=== PATIENT | male | born 1945 | race Caucasian/White ===

== ENCOUNTER 2016-10-13 09:36 | Inpatient (IN) | payer MEDICARE, MEDICAID ==
[~2016-10-13] VITALS: Ht 182.9 cm; Wt 86.8 kg
[2016-10-13] MEDS ORDERED: SODIUM CHLORIDE FLUSH 10ML SYR IVF ONE (10:30)
[2016-10-13 10:42] LABS: HEMATOCRIT 44.3 % (39.2-51.8); HEMOGLOBIN 14.7 g/dL (13.7-18.0); WHITE BLOOD COUNT 6.4 x10^3/uL (3.4-10)
[2016-10-13] MEDS ORDERED: LISI40TA PO (10:48)
[2016-10-13] MEDS ORDERED: LISI-170 PO (10:48)
[2016-10-13] MEDS ORDERED: DOXAZOSIN PO (10:48)
[2016-10-13] MEDS ORDERED: FINA5TAB4 PO (10:48)
[2016-10-13] MEDS ORDERED: ATOR-2 PO (10:48)
[2016-10-13] MEDS ORDERED: CARV6.252 PO (10:48)
[2016-10-13 10:56] LABS: ASPARTATE AMINO TRANSFERASE 15 U/L (15-37); BLOOD UREA NITROGEN 21 mg/dL (7-18)
[2016-10-13 11:02] LABS: IS PT STATUS REG ER OR PRE ER? YES
[2016-10-13] MEDS: PLEASE ENTER ALLERGIES MC SCH ×4 (11:09→13:32)
[2016-10-13] MEDS ORDERED: morphine SULFATE 10 MG/ML, 1ML IVPush PRN (12:30)
[2016-10-13] MEDS ORDERED: NITROGLYCERIN 0.4 MG/SPRAY SL PRN (12:30)
[2016-10-13] MEDS ORDERED: ONDANSETRON ODT 4 MG PO PRN (12:30)
[2016-10-13] MEDS ORDERED: ACETAMINOPHEN 325 MG TABLET PO PRN (12:30)
[2016-10-13] MEDS ORDERED: ONDANSETRON 2MG/ML, 2ML IVPush PRN (12:30)
[2016-10-13] MEDS ORDERED: NITROGLYCERIN 0.4 MG BOTTLE (25 TABS) SL PRN (12:30)
[2016-10-13 12:39] VITALS: BP 156/95
[2016-10-13] MEDS: ENOXAPARIN 40 MG/0.4 ML SQ SCH (13:40)
[2016-10-13] MEDS: CARVEDILOL 6.25 MG TABLET PO SCH (13:40)
[2016-10-13 15:28] LABS: IS PT STATUS REG ER OR PRE ER? NO
[2016-10-13 20:11] VITALS: BP_SYST 117; BP_SYST 131; BP_SYST 132; BP_DIAS 73; BP_DIAS 79; BP_DIAS 87
[2016-10-13] MEDS: ATORVASTATIN 20 MG TABLET PO SCH (20:47)
[2016-10-13 21:37] LABS: IS PT STATUS REG ER OR PRE ER? NO
[2016-10-14 02:41] VITALS: BP 107/70
[2016-10-14 05:38] LABS: HEMATOCRIT 42.5 % (39.2-51.8); HEMOGLOBIN 14.2 g/dL (13.7-18.0); WHITE BLOOD COUNT 6.8 x10^3/uL (3.4-10)
[2016-10-14 05:55] LABS: ASPARTATE AMINO TRANSFERASE 15 U/L (15-37); BLOOD UREA NITROGEN 22 mg/dL (7-18)
[2016-10-14] MEDS ORDERED: REGADENOSON 0.4 MG/5 ML SYRINGE ONE (08:14)
[2016-10-14] MEDS: LISINOPRIL 20 MG TABLET PO SCH ×2 (08:30→22:08)
[2016-10-14] MEDS: DOXAZOSIN 2MG TABLET PO SCH (08:30)
[2016-10-14] MEDS: FINASTERIDE 5 MG TABLET PO SCH (08:30)
[2016-10-14] MEDS: CARVEDILOL 6.25 MG TABLET PO SCH (08:30)
[2016-10-14 08:32] VITALS: BP 125/85
[2016-10-14] MEDS ORDERED: LISINOPRIL 20 MG TABLET PO SCH (09:00)
[2016-10-14 13:36] VITALS: BP 128/75
[2016-10-14] MEDS: ENOXAPARIN 40 MG/0.4 ML SQ SCH (13:37)
[2016-10-14] MEDS ORDERED: OMNIPAQUE 350 MG/ML, 100ML BOTTLE ONE (16:11)
[2016-10-14] MEDS ORDERED: LORazepam 0.5MG TABLET PO PRN (17:00)
[2016-10-14] MEDS ORDERED: CALCIUM CARBONATE 500 MG TAB.CHEW PO PRN (18:30)
[2016-10-14 20:01] VITALS: BP 100/62
[2016-10-14 21:50] VITALS: BP 130/83
[2016-10-14] MEDS: ATORVASTATIN 20 MG TABLET PO SCH (22:07)
[2016-10-15 02:24] VITALS: BP 105/71
[2016-10-15 07:22] VITALS: BP 127/82
[2016-10-15] MEDS: CARVEDILOL 6.25 MG TABLET PO SCH (08:47)
[2016-10-15] MEDS: DOXAZOSIN 2MG TABLET PO SCH (08:48)
[2016-10-15] MEDS: LISINOPRIL 20 MG TABLET PO SCH (08:48)
[2016-10-15] MEDS: FINASTERIDE 5 MG TABLET PO SCH (08:48)
[2016-10-15 08:52] VITALS: BP_SYST 121; BP_SYST 131; BP_SYST 147; BP_DIAS 75; BP_DIAS 82; BP_DIAS 83
[2016-10-15 11:59] VITALS: BP 133/85
[2016-10-15] MEDS ORDERED: ASPI-621 PO (12:13)
[2016-10-15] MEDS: ENOXAPARIN 40 MG/0.4 ML SQ SCH (12:19)
[2016-10-15 15:25] VITALS: BP 129/72
== END 2016-10-15 16:10 | disposition home or self-care (01) | DRG 300 ==
LOC: ED 10:46 → EDIP 11:37 → 5SO 12:21 → DCLOUNGE 10-15 15:55
PROVIDERS: ADMIT Hospitalist; ATTEND Hospitalist
DX: I71.2 Thoracic aortic aneurysm, without rupture (principal); K86.2 Cyst of pancreas; I95.9 Hypotension, unspecified; G90.8 Other disorders of autonomic nervous system; E78.00 Pure hypercholesterolemia, unspecified; K76.89 Other specified diseases of liver; I10 Essential (primary) hypertension; E78.5 Hyperlipidemia, unspecified; M10.9 Gout, unspecified; N40.0 Benign prostatic hyperplasia without lower urinary tract symptoms; Z82.3 Family history of stroke; Z82.49 Family history of ischemic heart disease and other diseases of the circulatory system; Z87.891 Personal history of nicotine dependence; Z79.899 Other long term (current) drug therapy
CPT/HCPCS: 36415; 71010; 71275; 74175; 78452; 80053; 80061; 83605; 83735; 84100; 84439; 84443; 84484; 85025; 93005; 93017; 93306; 99285; J1650; J2785; Q9967; A9502; C9898

== ENCOUNTER 2016-12-09 10:02 | Inpatient (IN) | payer MEDICARE, MEDICAID ==
[~2016-12-09] VITALS: Ht 182.9 cm; Wt 84.4 kg
[~2016-12-09 10:02] MED LIST: ASPI-621 PO; ATOR-2 PO; CARV6.252 PO; DOXAZOSIN PO; FINA5TAB4 PO; LISI-170 PO; LISI40TA PO
[2016-12-09] MEDS ORDERED: ASPI-496 PO (10:13)
[2016-12-09] MEDS ORDERED: DOXA2TAB9 PO (10:13)
[2016-12-09] MEDS ORDERED: OMEP20TA62 PO (10:13)
[2017-01-02 15:11] LABS: HEMATOCRIT 46.8 % (39.2-51.8); HEMOGLOBIN 15.9 g/dL (13.7-18.0); WHITE BLOOD COUNT 8.3 x10^3/uL (3.4-10)
[2017-01-02 15:19] LABS: BLOOD UREA NITROGEN 19 mg/dL (7-18)
[2017-01-02 15:23] LABS: ASPARTATE AMINO TRANSFERASE 14 U/L (15-37)
[2017-01-03] VITALS (9 sets, daily range): BP systolic 94–123; BP diastolic 52–86
[2017-01-03] MEDS ORDERED: INSULIN ASPART 100 UNITS/ML, PEN SQ-INSULIN SCH (06:00)
[2017-01-03] MEDS ORDERED: CHLORHEXIDINE MOUTHWASH 15 ML UDC MM SCH (08:00)
[2017-01-03] MEDS ORDERED: DO NOT GIVE MC SCH (08:00)
[2017-01-03] MEDS: MUPIROCIN OINT 2%, 22GM TP SCH ×2 (08:27→20:41)
[2017-01-03] MEDS: SODIUM CHLORIDE FLUSH 10ML SYR IVF SCH ×3 (08:28→20:40)
[2017-01-03] MEDS ORDERED: TRANEXAMIC ACID 100 MG/ML, 10ML ONE ×8 (08:50→10:39)
[2017-01-03] MEDS ORDERED: FENTANYL PF 1000 MCG/20ML ONE (10:02)
[2017-01-03] MEDS ORDERED: MIDAZOLAM 10MG/2 ML ONE (10:02)
[2017-01-03] MEDS ORDERED: EPINEPHRINE 1 MG/ML, 1ML ONE (10:05)
[2017-01-03] MEDS ORDERED: PROPOFOL 10 MG/ML, 20ML ONE (10:05)
[2017-01-03] MEDS ORDERED: PHENYLEPHRINE 10 MG/ML ONE (10:05)
[2017-01-03] MEDS ORDERED: CALCIUM CHLORIDE 10%, 10ML SYR ONE (10:05)
[2017-01-03] MEDS ORDERED: ROCURONIUM 10 MG/ML,10ML ONE ×2 (10:05→12:05)
[2017-01-03] MEDS ORDERED: CEFUROXIME 1.5 GM ONE (10:35)
[2017-01-03] MEDS ORDERED: VASOPRESSIN 20 UNIT/ML, 1ML ONE (11:10)
[2017-01-03] MEDS ORDERED: PHENYLEPHRINE 10 MG in SODIUM CHLORIDE 0.9% 249 ML IV PRN ×2 (11:30→13:57)
[2017-01-03] MEDS ORDERED: CEFUROXIME 1.5 GM in SODIUM CHLORIDE 0.9% 50 ML IVPB PRN (11:30)
[2017-01-03] MEDS ORDERED: VANCOMYCIN 1,300 MG in SODIUM CHLORIDE 0.9% 250 ML IV PRN (11:30)
[2017-01-03] MEDS ORDERED: ALBUMIN HUMAN 5% 500 ML IV ONE (11:30)
[2017-01-03] MEDS ORDERED: MANNITOL PMX 20% 500 ML IVPB PRN (11:30)
[2017-01-03] MEDS ORDERED: POTASSIUM CHLORIDE 80 MEQ, SODIUM BICARBONATE 8.4% 10 MEQ, MAGNESIUM SULFATE 0.5 GM, LI... IV PRN (11:30)
[2017-01-03] MEDS ORDERED: EPINEPHRINE 2 MG in SODIUM CHLORIDE 0.9% 248 ML IV SCH (11:30)
[2017-01-03] MEDS ORDERED: REGULAR INSULIN 62.5 UNITS in SODIUM CHLORIDE 0.9% 249.375 ML IV PRN ×2 (11:30→13:57)
[2017-01-03] MEDS ORDERED: DEXMEDETOMIDINE 200 MCG in SODIUM CHLORIDE 0.9% 48 ML IV SCH (11:30)
[2017-01-03] MEDS ORDERED: PROTAMINE SULFATE 10 MG/ML, 25ML ONE ×2 (12:05)
[2017-01-03] MEDS ORDERED: VASOPRESSIN 50 UNIT in SODIUM CHLORIDE 0.9% 250 ML IV PRN (13:57)
[2017-01-03] MEDS ORDERED: NITROGLYCERIN/D5W PMX 240 ML IV PRN (13:57)
[2017-01-03] MEDS ORDERED: DOBUTAMINE 250 MG in SODIUM CHLORIDE 0.9% 230 ML IV PRN (13:57)
[2017-01-03] MEDS ORDERED: SODIUM CHLORIDE 0.9% 1,000 ML IV PRN (13:57)
[2017-01-03] MEDS ORDERED: DEXMEDETOMIDINE 200 MCG in SODIUM CHLORIDE 0.9% 48 ML IV PRN (13:57)
[2017-01-03] MEDS ORDERED: BISACODYL 10 MG SUPP PR PRN (14:00)
[2017-01-03] MEDS ORDERED: PROCHLORPERAZINE 5 MG/ML, 2ML IVPush PRN (14:00)
[2017-01-03] MEDS ORDERED: ACETAMINOPHEN 650 MG SUPP PR PRN (14:00)
[2017-01-03] MEDS ORDERED: INSULIN REGULAR 100 UNITS/ML, 3ML VIAL IVPush PRN (14:00)
[2017-01-03] MEDS ORDERED: SODIUM BICARB 8.4%, 50ML SYRINGE IV PRN (14:00)
[2017-01-03] MEDS: KSCALE TO 4.5 IV SCH ×2 (14:00→20:00)
[2017-01-03] MEDS ORDERED: morphine SULFATE 10 MG/ML, 1ML IVPush PRN (14:00)
[2017-01-03] MEDS ORDERED: DEXTROSE 50%, 50ML SYRINGE IVPush PRN (14:00)
[2017-01-03] MEDS ORDERED: EPINEPHRINE 2 MG in SODIUM CHLORIDE 0.9% 248 ML IV PRN (14:00)
[2017-01-03] MEDS ORDERED: DEXTROSE 4 GM TAB.CHEW PO PRN (14:00)
[2017-01-03] MEDS ORDERED: MIDAZOLAM 1 MG/ML, 5ML IVPush PRN (14:00)
[2017-01-03] MEDS ORDERED: LACTATED RINGERS 1,000 ML IV PRN (14:00)
[2017-01-03] MEDS ORDERED: ACETAMINOPHEN 325 MG TABLET PO PRN (14:00)
[2017-01-03] MEDS ORDERED: GLUCAGON 1 MG IM PRN (14:00)
[2017-01-03] MEDS ORDERED: BISACODYL 5 MG EC TABLET PO PRN (14:00)
[2017-01-03] MEDS ORDERED: HYDROcodone/APAP 5/325 TABLET PO PRN (14:00)
[2017-01-03] MEDS ORDERED: ONDANSETRON 2MG/ML, 2ML IVPush PRN (14:00)
[2017-01-03] MEDS ORDERED: HEPARIN 1,000 UNITS/ML, 30ML ONE (14:21)
[2017-01-03] MEDS ORDERED: SODIUM BICARB 8.4%, 50ML SYRINGE ONE ×2 (14:21→14:22)
[2017-01-03] MEDS ORDERED: LIDOCAINE 2% 100MG/5ML SYRINGE ONE (14:21)
[2017-01-03] MEDS ORDERED: ALBUMIN HUMAN 25% 50 ML ONE (14:22)
[2017-01-03 14:45] LABS: ABG COLLECTION SITE ARTERIAL LINE
[2017-01-03] MEDS: INSULIN ASPART 100 UNITS/ML, PEN SQ-INSULIN SCH ×2 (14:54→20:41)
[2017-01-03] MEDS: CHLORHEXIDINE MOUTHWASH 15 ML UDC MM SCH (14:55)
[2017-01-03] MEDS: MAGNESIUM SULFATE 1 GM in SODIUM CHLORIDE 0.9% 50 ML IVPB SCH (14:55)
[2017-01-03] MEDS ORDERED: POTASSIUM CHLORIDE 30 MEQ in SODIUM CHLORIDE 0.9% 100 ML IV ONE (15:30)
[2017-01-03 17:18] LABS: HEMATOCRIT 32.8 % (39.2-51.8); HEMOGLOBIN 11.3 g/dL (13.7-18.0)
[2017-01-03] MEDS: MUPIROCIN OINT 2%, 22GM NAS SCH (20:41)
[2017-01-03] MEDS: OXYcodone IR 30 MG TABLET PO PRN ×2 (20:44→23:35)
[2017-01-03] MEDS ORDERED: OXYcodone IR 5MG TABLET ONE ×2 (20:44→23:32)
[2017-01-03 20:46] LABS: HEMATOCRIT 29.4 % (39.2-51.8); HEMOGLOBIN 10.1 g/dL (13.7-18.0)
[2017-01-03] MEDS ORDERED: ALBUTEROL SULFATE 2.5 MG/3 ML NPPB PRN (21:00)
[2017-01-03] MEDS: CEFUROXIME 1.5 GM in SODIUM CHLORIDE 0.9% 50 ML IVPB SCH (23:36)
[2017-01-04] MEDS: INSULIN ASPART 100 UNITS/ML, PEN SQ-INSULIN SCH ×4 (01:12→20:52)
[2017-01-04] MEDS: VANCOMYCIN 1,300 MG in SODIUM CHLORIDE 0.9% 250 ML IVPB SCH ×2 (01:14→11:52)
[2017-01-04 01:55] LABS: HEMATOCRIT 27.5 % (39.2-51.8); HEMOGLOBIN 9.2 g/dL (13.7-18.0)
[2017-01-04] MEDS: KSCALE TO 4.5 IV SCH ×2 (02:00→08:00)
[2017-01-04] MEDS: CHLORHEXIDINE MOUTHWASH 15 ML UDC MM SCH ×2 (03:53→14:51)
[2017-01-04] MEDS: EPINEPHRINE 2 MG in SODIUM CHLORIDE 0.9% 248 ML IV PRN ×3 (03:56→23:15)
[2017-01-04] MEDS: HYDROcodone/APAP 10/325 MG TABLET PO PRN ×5 (03:59→23:15)
[2017-01-04 04:33] LABS: ABG COLLECTION SITE NOT DOCUMENTED
[2017-01-04 04:51] LABS: BLOOD UREA NITROGEN 17 mg/dL (7-18)
[2017-01-04 05:05] LABS: HEMATOCRIT 27.1 % (39.2-51.8); HEMOGLOBIN 9.1 g/dL (13.7-18.0); WHITE BLOOD COUNT 9.5 x10^3/uL (3.4-10)
[2017-01-04] MEDS ORDERED: ALBUMIN HUMAN 25% 100 ML IV ONE (06:00)
[2017-01-04] MEDS: SODIUM CHLORIDE FLUSH 10ML SYR IVF SCH ×4 (08:15→20:52)
[2017-01-04] MEDS: WARFARIN BIOPROSTHETIC VALVE PROTOCOL 2-3 XX SCH (09:00)
[2017-01-04] MEDS: MUPIROCIN OINT 2%, 22GM NAS SCH ×2 (09:31→20:52)
[2017-01-04] MEDS: ASPIRIN 81 MG TABLET EC PO SCH (09:32)
[2017-01-04] MEDS: CEFUROXIME 1.5 GM in SODIUM CHLORIDE 0.9% 50 ML IVPB SCH (10:12)
[2017-01-04] MEDS ORDERED: CALCIUM CHLORIDE 13.6 MEQ in SODIUM CHLORIDE 0.9% 100 ML IV ONE (11:30)
[2017-01-04] MEDS ORDERED: ALBUMIN HUMAN 5% 500 ML IV ONE (11:30)
[2017-01-04] MEDS ORDERED: OXYcodone IR 5MG TABLET ONE ×2 (11:54→13:58)
[2017-01-04] MEDS: OXYcodone IR 30 MG TABLET PO PRN (11:57)
[2017-01-04] MEDS: KETOROLAC 30 MG/1 ML IM PRN ×2 (14:20→20:57)
[2017-01-04] MEDS: MAGNESIUM SULFATE 1 GM in SODIUM CHLORIDE 0.9% 50 ML IVPB SCH (14:52)
[2017-01-04] MEDS ORDERED: WARFARIN 5 MG TABLET PO-COUM SCH (18:00)
[2017-01-05] MEDS: CHLORHEXIDINE MOUTHWASH 15 ML UDC MM SCH (02:00)
[2017-01-05] MEDS ORDERED: OXYcodone IR 5MG TABLET ONE (03:19)
[2017-01-05] MEDS: HYDROcodone/APAP 10/325 MG TABLET PO PRN ×5 (03:23→21:24)
[2017-01-05 06:14] LABS: ABG COLLECTION SITE ARTERIAL LINE; BLOOD UREA NITROGEN 15 mg/dL (7-18); HEMATOCRIT 23.9 % (39.2-51.8); HEMOGLOBIN 8.2 g/dL (13.7-18.0); WHITE BLOOD COUNT 8.2 x10^3/uL (3.4-10)
[2017-01-05] MEDS: INSULIN ASPART 100 UNITS/ML, PEN SQ-INSULIN SCH ×4 (07:00→19:59)
[2017-01-05] MEDS: ASPIRIN 81 MG TABLET EC PO SCH (07:58)
[2017-01-05] MEDS: SODIUM CHLORIDE FLUSH 10ML SYR IVF SCH ×5 (07:58→19:48)
[2017-01-05] MEDS: MUPIROCIN OINT 2%, 22GM NAS SCH ×2 (07:59→19:59)
[2017-01-05] MEDS: WARFARIN BIOPROSTHETIC VALVE PROTOCOL 2-3 XX SCH (09:00)
[2017-01-05] MEDS ORDERED: MAGNESIUM HYDROXIDE 8%, 30ML UDC PO PRN (10:30)
[2017-01-05] MEDS: FINASTERIDE 5 MG TABLET PO SCH (12:59)
[2017-01-05] MEDS: MAGNESIUM SULFATE 1 GM in SODIUM CHLORIDE 0.9% 50 ML IVPB SCH (14:10)
[2017-01-05] MEDS: FLUTICASONE/VILANTEROL 100-25MCG/INH INH SCH (14:14)
[2017-01-05 16:42] VITALS: BP 129/83
[2017-01-05] MEDS ORDERED: WARFARIN 5 MG TABLET PO-COUM ONE (18:00)
[2017-01-05 19:14] VITALS: BP 117/76
[2017-01-05] MEDS ORDERED: CALCIUM CARBONATE 500 MG TAB.CHEW ONE (21:22)
[2017-01-05] MEDS ORDERED: CALCIUM CARBONATE 500 MG TAB.CHEW PO PRN (21:30)
[2017-01-06 01:29] VITALS: BP 105/67
[2017-01-06] MEDS: HYDROcodone/APAP 10/325 MG TABLET PO PRN ×3 (02:52→17:11)
[2017-01-06 03:13] LABS: HEMATOCRIT 27.1 % (39.2-51.8); WHITE BLOOD COUNT 8.8 x10^3/uL (3.4-10)
[2017-01-06 03:23] LABS: BLOOD UREA NITROGEN 13 mg/dL (7-18)
[2017-01-06] MEDS ORDERED: OXYcodone IR 5MG TABLET ONE (05:29)
[2017-01-06] MEDS: OXYcodone IR 30 MG TABLET PO PRN (05:32)
[2017-01-06] MEDS ORDERED: CYCLOBENZAPRINE 10 MG TABLET ONE (06:05)
[2017-01-06] MEDS: CYCLOBENZAPRINE 10 MG TABLET PO PRN ×2 (06:13→17:11)
[2017-01-06] MEDS: INSULIN ASPART 100 UNITS/ML, PEN SQ-INSULIN SCH (07:00)
[2017-01-06 07:38] VITALS: BP 114/72
[2017-01-06] MEDS: MUPIROCIN OINT 2%, 22GM NAS SCH ×2 (08:30→20:10)
[2017-01-06] MEDS: ASPIRIN 81 MG TABLET EC PO SCH (08:30)
[2017-01-06] MEDS: FINASTERIDE 5 MG TABLET PO SCH (08:31)
[2017-01-06] MEDS: WARFARIN BIOPROSTHETIC VALVE PROTOCOL 2-3 XX SCH (08:31)
[2017-01-06] MEDS: SODIUM CHLORIDE FLUSH 10ML SYR IVF SCH ×4 (08:31→20:10)
[2017-01-06] MEDS: FLUTICASONE/VILANTEROL 100-25MCG/INH INH SCH (08:45)
[2017-01-06] MEDS: KETOROLAC 30 MG/1 ML IM PRN (08:47)
[2017-01-06] MEDS ORDERED: DOCUSATE 100 MG CAPSULE PO PRN (11:00)
[2017-01-06] MEDS: PANTOPRAZOLE 40 MG IV IVPush SCH (11:06)
[2017-01-06 15:25] VITALS: BP 99/65
[2017-01-06] MEDS ORDERED: WARFARIN 7.5 MG TABLET PO-COUM ONE (18:00)
[2017-01-06 18:46] VITALS: BP 115/75
[2017-01-07 01:36] VITALS: BP 108/67
[2017-01-07] MEDS: HYDROcodone/APAP 10/325 MG TABLET PO PRN ×5 (03:31→22:09)
[2017-01-07 04:27] LABS: BLOOD UREA NITROGEN 17 mg/dL (7-18)
[2017-01-07 07:11] VITALS: BP 110/73
[2017-01-07] MEDS: SODIUM CHLORIDE FLUSH 10ML SYR IVF SCH ×4 (07:27→20:21)
[2017-01-07] MEDS: WARFARIN BIOPROSTHETIC VALVE PROTOCOL 2-3 XX SCH (07:27)
[2017-01-07] MEDS: CYCLOBENZAPRINE 10 MG TABLET PO PRN ×2 (07:36→17:49)
[2017-01-07] MEDS: FLUTICASONE/VILANTEROL 100-25MCG/INH INH SCH (07:36)
[2017-01-07] MEDS: FINASTERIDE 5 MG TABLET PO SCH (07:36)
[2017-01-07] MEDS: MUPIROCIN OINT 2%, 22GM NAS SCH ×2 (07:36→20:20)
[2017-01-07] MEDS: PANTOPRAZOLE 40 MG IV IVPush SCH (07:36)
[2017-01-07] MEDS: ASPIRIN 81 MG TABLET EC PO SCH (07:37)
[2017-01-07 14:01] VITALS: BP 107/69
[2017-01-07] MEDS ORDERED: WARFARIN 7.5 MG TABLET PO-COUM ONE (18:00)
[2017-01-07 18:59] VITALS: BP 121/74
[2017-01-08 00:28] VITALS: BP 112/68
[2017-01-08] MEDS: HYDROcodone/APAP 10/325 MG TABLET PO PRN ×3 (03:28→13:23)
[2017-01-08 05:00] LABS: BLOOD UREA NITROGEN 14 mg/dL (7-18)
[2017-01-08 07:34] VITALS: BP 119/74
[2017-01-08] MEDS: MUPIROCIN OINT 2%, 22GM NAS SCH (07:58)
[2017-01-08] MEDS: SODIUM CHLORIDE FLUSH 10ML SYR IVF SCH ×2 (07:58→07:59)
[2017-01-08] MEDS: CYCLOBENZAPRINE 10 MG TABLET PO PRN ×2 (07:58→13:24)
[2017-01-08] MEDS: ASPIRIN 81 MG TABLET EC PO SCH (07:58)
[2017-01-08] MEDS: FINASTERIDE 5 MG TABLET PO SCH (07:58)
[2017-01-08] MEDS: FLUTICASONE/VILANTEROL 100-25MCG/INH INH SCH (07:59)
[2017-01-08] MEDS: WARFARIN BIOPROSTHETIC VALVE PROTOCOL 2-3 XX SCH (07:59)
[2017-01-08] MEDS ORDERED: PANTOPROZOLE 40MG TABLET PO SCH (09:00)
[2017-01-08] MEDS ORDERED: ASPI-621 PO (09:52)
[2017-01-08] MEDS ORDERED: DEXT4TAB PO (09:52)
[2017-01-08] MEDS ORDERED: DOCU-131 PO (09:52)
[2017-01-08] MEDS ORDERED: ONDA4VIA4 IVPush (09:52)
[2017-01-08] MEDS ORDERED: OXYC30TA PO (09:52)
[2017-01-08] MEDS ORDERED: CALC200T24 PO (09:52)
[2017-01-08] MEDS ORDERED: CYCL-259 PO (09:52)
[2017-01-08] MEDS ORDERED: MAGN400O7 PO (09:52)
[2017-01-08] MEDS ORDERED: FLUT1AER INH (09:52)
[2017-01-08] MEDS ORDERED: WARF2.5T73 PO (09:52)
[2017-01-08] MEDS ORDERED: HYDR-3307 PO (13:39)
[2017-01-08] MEDS ORDERED: BISA5TAB5 PO (13:40)
[2017-01-08] MEDS ORDERED: HYDR-3240 PO (13:40)
[2017-01-08] MEDS ORDERED: ACET325T26 PO (13:41)
[2017-01-08] MEDS ORDERED: BISA10SU65 PR (13:41)
[2017-01-08] MEDS ORDERED: ACET650S12 PR (13:42)
[2017-01-08] MEDS ORDERED: WARFARIN 10 MG TABLET PO-COUM ONE (18:00)
== END 2017-01-08 14:00 | DRG 219 ==
LOC: ORIP 10:02 → UNDOADMIN 10:02 → ORIP 01-02 13:22 → 5SO 01-03 06:18 → EDSTATUS 01-03 11:30 → CCU 01-03 11:47 → 5SO 01-05 16:22
PROVIDERS: ADMIT Thoracic Surgery (Cardiothoracic Vascular Surgery); ATTEND Thoracic Surgery (Cardiothoracic Vascular Surgery)
PROC: 02RX0JZ Replacement of Thoracic Aorta, Ascending/Arch with Synthetic Substitute, Open Approach (ICD-10-PCS; 2017-01-03)
PROC: B24BZZ4 Ultrasonography of Heart with Aorta, Transesophageal (ICD-10-PCS; 2017-01-03)
PROC: 5A1221Z Performance of Cardiac Output, Continuous (ICD-10-PCS; 2017-01-03)
PROC: 0BH17EZ Insertion of Endotracheal Airway into Trachea, Via Natural or Artificial Opening (ICD-10-PCS; 2017-01-03)
PROC: 30233L1 Transfusion of Nonautologous Fresh Plasma into Peripheral Vein, Percutaneous Approach (ICD-10-PCS; 2017-01-03)
PROC: 30233R1 Transfusion of Nonautologous Platelets into Peripheral Vein, Percutaneous Approach (ICD-10-PCS; 2017-01-03)
PROC: 30233M1 Transfusion of Nonautologous Plasma Cryoprecipitate into Peripheral Vein, Percutaneous Approach (ICD-10-PCS; 2017-01-03)
PROC: 30233K1 Transfusion of Nonautologous Frozen Plasma into Peripheral Vein, Percutaneous Approach (ICD-10-PCS; 2017-01-03)
PROC: 5A1223Z Performance of Cardiac Pacing, Continuous (ICD-10-PCS; 2017-01-03)
PROC: 02RF0JZ Replacement of Aortic Valve with Synthetic Substitute, Open Approach (ICD-10-PCS; principal; 2017-01-03 11:30)
PROC: 02HV33Z Insertion of Infusion Device into Superior Vena Cava, Percutaneous Approach (ICD-10-PCS; 2017-01-04)
DX: I71.2 Thoracic aortic aneurysm, without rupture (principal); I50.31 Acute diastolic (congestive) heart failure; E87.2 Acidosis; E87.8 Other disorders of electrolyte and fluid balance, not elsewhere classified; Q23.1 Congenital insufficiency of aortic valve; I11.0 Hypertensive heart disease with heart failure; I35.0 Nonrheumatic aortic (valve) stenosis; M10.9 Gout, unspecified; J45.909 Unspecified asthma, uncomplicated; N40.0 Benign prostatic hyperplasia without lower urinary tract symptoms; I45.4 Nonspecific intraventricular block; E78.5 Hyperlipidemia, unspecified; Z79.01 Long term (current) use of anticoagulants; Z87.891 Personal history of nicotine dependence
CPT/HCPCS: 36415; 36600; 71010; 71020; 80048; 80053; 81003; 82040; 82330; 82800; 82803; 82810; 82947; 82962; 83036; 83735; 84132; 84295; 85014; 85018; 85025; 85049; 85347; 85610; 85730; 86850; 86900; 86923; 87081; 88304; 88305; 93005; 93312; 93321; 93325; 93880; 94002; 94003; 94150; 94640; C1768; J0171; J0697; J1644; J1815; J1885; J2250; J2704; J2720; J3010; J3370; J3475; J3480; J7613; P9045; P9047; C1751; C1760; C1762; C9113; J2270; J2370; J7050; P9012; P9017; P9035

== ENCOUNTER 2016-12-10 09:46 | Observation (INO) | payer MEDICARE, MEDICAID ==
[2016-12-09 10:05] VITALS: BP 136/92
[2016-12-09 10:44] LABS: HEMATOCRIT 43.5 % (39.2-51.8); HEMOGLOBIN 14.9 g/dL (13.7-18.0); WHITE BLOOD COUNT 6.4 x10^3/uL (3.4-10)
[2016-12-09 10:58] LABS: BLOOD UREA NITROGEN 16 mg/dL (7-18)
[~2016-12-10] VITALS: Ht 182.9 cm; Wt 93.2 kg
[~2016-12-10 09:46] MED LIST changes: +ASPI-496 PO; +DOXA2TAB9 PO; +OMEP20TA62 PO
[2016-12-10] MEDS ORDERED: LIDOCAINE 2%, 20ML ONE (11:07)
[2016-12-10] MEDS ORDERED: MIDAZOLAM 1 MG/ML, 5ML ONE (11:07)
[2016-12-10] MEDS ORDERED: FENTANYL PF 100 MCG/2ML ONE ×2 (11:07→12:07)
[2016-12-10] MEDS: ASPIRIN 81 MG TABLET EC PO SCH (13:33)
[2016-12-10] MEDS ORDERED: KETOROLAC 30 MG/1 ML IVPush ONE (15:00)
[2016-12-10 20:53] VITALS: BP 128/82
[2016-12-10] MEDS: LISINOPRIL 10 MG TABLET PO SCH (20:59)
[2016-12-10] MEDS ORDERED: ATORVASTATIN 20 MG TABLET PO SCH (21:00)
[2016-12-10] MEDS ORDERED: DOXAZOSIN 2MG TABLET PO SCH (21:30)
[2016-12-11 05:00] VITALS: BP 127/78
[2016-12-11 07:30] VITALS: BP 128/85
[2016-12-11] MEDS: ASPIRIN 81 MG TABLET EC PO SCH (07:35)
[2016-12-11] MEDS: LISINOPRIL 10 MG TABLET PO SCH (07:35)
[2016-12-11] MEDS ORDERED: OMEPRAZOLE 20 MG CAPSULE.DR PO SCH (09:00)
[2016-12-11] MEDS ORDERED: FINASTERIDE 5 MG TABLET PO SCH (09:00)
[2016-12-11] MEDS ORDERED: DOXAZOSIN 2MG TABLET PO SCH (09:00)
[2016-12-11] MEDS ORDERED: CARVEDILOL 6.25 MG TABLET PO SCH (09:00)
== END 2016-12-11 11:30 | disposition home or self-care (01) ==
LOC: CACL 09:46 → 5SO 12:58 → CACL 12-11 08:07 → 5SO 12-11 08:08 → DCLOUNGE 12-11 11:20
PROVIDERS: ADMIT Internal Medicine Cardiovascular Disease; ATTEND Internal Medicine Cardiovascular Disease
DX: I71.2 Thoracic aortic aneurysm, without rupture (principal); Q23.1 Congenital insufficiency of aortic valve; I10 Essential (primary) hypertension; E78.5 Hyperlipidemia, unspecified
CPT/HCPCS: 36415; 80048; 85025; 93458; 96374; 99156; 99157; C1769; C1894; G0378; J1885; J2250; J3010; J3490; Q9967

== ENCOUNTER → 2017-01-28 | Outpatient (CLI) | payer MEDICARE, MEDICAID ==
[~2017-01-28] MED LIST changes: +ACET325T26 PO; +ACET650S12 PR; +BISA10SU65 PR; +BISA5TAB5 PO; +CALC200T24 PO; +CYCL-259 PO; +DEXT4TAB PO; +DOCU-131 PO; +FLUT1AER INH; +HYDR-3240 PO; +HYDR-3307 PO; +MAGN400O7 PO; +ONDA4VIA4 IVPush; +OXYC30TA PO; +WARF2.5T73 PO
[2017-01-28 12:31] LABS: HEMATOCRIT 35.4 % (39.2-51.8); HEMOGLOBIN 11.7 g/dL (13.7-18.0); WHITE BLOOD COUNT 7.4 x10^3/uL (3.4-10)
[2017-01-28 12:45] LABS: ASPARTATE AMINO TRANSFERASE 12 U/L (15-37); BLOOD UREA NITROGEN 14 mg/dL (7-18)
== END | disposition home or self-care (01) ==
LOC: LAB 10:40
PROVIDERS: ATTEND Nurse Practitioner Family
DX: I10 Essential (primary) hypertension (principal); E78.5 Hyperlipidemia, unspecified; I72.9 Aneurysm of unspecified site; Q23.1 Congenital insufficiency of aortic valve
CPT/HCPCS: 36415; 80053; 85025

== ENCOUNTER → 2017-02-18 | Outpatient (CLI) | payer MEDICARE, MEDICAID | LOC: CFH 13:59 | PROVIDERS: ATTEND Internal Medicine Cardiovascular Disease | DX: Z01.810 Encounter for preprocedural cardiovascular examination (principal); I10 Essential (primary) hypertension; E78.5 Hyperlipidemia, unspecified; R00.0 Tachycardia, unspecified | CPT/HCPCS: 36415; 84443 ==

== ENCOUNTER → 2017-02-18 | Outpatient (CLI) | payer MEDICARE, MEDICAID ==
[2017-02-18 15:36] LABS: INTERNATIONAL NORMALIZED RATIO 1.16 (0.93-1.1)
== END ==
LOC: LAB 14:36
PROVIDERS: ATTEND Internal Medicine Cardiovascular Disease
DX: I35.8 Other nonrheumatic aortic valve disorders (principal)
CPT/HCPCS: 36415; 85610

== ENCOUNTER → 2017-03-06 | Outpatient (CLI) | payer MEDICARE, MEDICAID ==
[2017-03-06 11:15] LABS: INTERNATIONAL NORMALIZED RATIO 1.61 (0.93-1.1); PROTHROMBIN TIME 16.6 Seconds (9.6-11.5)
== END | disposition home or self-care (01) ==
LOC: LAB 10:39
PROVIDERS: ATTEND Internal Medicine Cardiovascular Disease
DX: I35.8 Other nonrheumatic aortic valve disorders (principal)
CPT/HCPCS: 36415; 85610

== ENCOUNTER → 2017-03-20 | Outpatient (CLI) | payer MEDICARE, MEDICAID ==
[2017-03-20 11:35] LABS: INTERNATIONAL NORMALIZED RATIO 2.63 (0.93-1.1); PROTHROMBIN TIME 26.6 Seconds (9.6-11.5)
== END | disposition home or self-care (01) ==
LOC: LAB 11:08
PROVIDERS: ATTEND Internal Medicine Cardiovascular Disease
DX: I35.8 Other nonrheumatic aortic valve disorders (principal)
CPT/HCPCS: 36415; 85610

== ENCOUNTER → 2018-04-20 | Outpatient (CLI) | payer MEDICARE, MEDICAID ==
[~2018-04-20] MED LIST changes: -ASPI-621 PO; +ASPI81TA45 PO; +DEXT-230 PO; -DEXT4TAB PO; -ONDA4VIA4 IVPush; +ONDA4VIA8 IVPush; +WARF2.5T32 PO; -WARF2.5T73 PO
== END | disposition home or self-care (01) ==
LOC: CFH 10:46
PROVIDERS: ATTEND Internal Medicine Cardiovascular Disease
DX: I08.1 Rheumatic disorders of both mitral and tricuspid valves (principal); I10 Essential (primary) hypertension; E78.5 Hyperlipidemia, unspecified; I71.2 Thoracic aortic aneurysm, without rupture
CPT/HCPCS: 93306

== ENCOUNTER → 2019-04-19 | Outpatient (CLI) | payer MEDICARE, MEDICAID ==
[~2019-04-19] MED LIST changes: -HYDR-3307 PO; +HYDR-36 PO; +ONDA4VIA60 IVPush; -ONDA4VIA8 IVPush
== END | disposition home or self-care (01) ==
LOC: CFH 10:51
PROVIDERS: ATTEND Internal Medicine Cardiovascular Disease
DX: I08.8 Other rheumatic multiple valve diseases (principal); I10 Essential (primary) hypertension; E78.5 Hyperlipidemia, unspecified; Z87.891 Personal history of nicotine dependence; Z95.2 Presence of prosthetic heart valve
CPT/HCPCS: 93306